=== PATIENT | female | born 1970 | race African-American/Black ===

== ENCOUNTER 2017-02-13 15:32 | Emergency (ER) | payer MEDICAID ==
[~2017-02-13 15:32] MED LIST: PROM6.256 PO; PSEU1TAB26 PO
[2017-02-13 15:35] VITALS: BP 158/75; PULSE 115; RESP 18; TEMP 102.7; O2SAT 99
[2017-02-13 15:48] VITALS: BP 141/75; PULSE 110; RESP 18; TEMP 103; O2SAT 99
[2017-02-13] MEDS ORDERED: ACETAMINOPHEN 325 MG TAB PO ONE (16:15)
[2017-02-13 16:23] VITALS: O2SAT 96
--- NOTE | 2017-02-13 16:23 | PD ---
HPI Chief Complaint: Cold / Flu Symptoms Time Seen by Provider: 16:14 Travel History International Travel<30 days: No Contact w/Intl Traveler<30days: No Traveled to known affect area: No History of Present Illness HPI 46 years old female complains of fever, headache, coughing congestion, nausea, low back pain, right foot pain. Patient states that the symptoms started a week ago. Patient states that she has facial pressure. Patient states the cough is productive intermittent. Patient denies any chest pain or shortness of breath. Patient complains of aching low back pain with radiation to right leg and the right foot. Patient denies any recent injury. Patient has history of recurrent right shoulder pain has been seen by physician for that. Patient denies any dysuria or frequency. Patient denies any vaginal discharge or bleeding. PFSH Past Medical History Medical History: Denies Significant Hx Blood Disorders: No Influenza Vaccination: No ?: Not LMP: 2 WEEKS Tubal Ligation: Yes Past Surgical History Surgical History: No Previous Surgery Social History Alcohol Use: Yes (SOCIALLY) Tobacco Use: No Substance Use: No Allergies-Medications (Allergen,Severity, Reaction): Coded Allergies: No Known Allergies (Unverified Adverse Reaction, Unknown, 02/13/17) Reported Meds & Prescriptions Reported Meds & Active Scripts Active No Active Prescriptions or Reported Medications Review of Systems General / Constitutional: Positive: Fever Eyes: No: Visual changes HENT: Positive: Headaches Cardiovascular: No: Chest Pain or Discomfort Respiratory: Positive: Cough, No: Shortness of Breath Gastrointestinal: Positive: Nausea, No: Abdominal Pain Genitourinary: No: Dysuria Musculoskeletal: Positive: Pain Skin: No Rash Neurologic: No: Weakness Psychiatric: No: Depression Endocrine: No: Polydipsia Hematologic/Lymphatic: No: Easy Bruising Physical Exam Narrative GENERAL: Well-nourished, well-developed patient. SKIN: Focused skin assessment warm/dry. HEAD: Normocephalic. EYES: No scleral icterus. No injection or drainage. TM: Clear.. Throat: Mild erythematous. NECK: Supple, trachea midline. No JVD or lymphadenopathy. No meningismus CARDIOVASCULAR: Regular rate and rhythm without murmurs, gallops, or rubs. RESPIRATORY: Breath sounds equal bilaterally. No accessory muscle use. GASTROINTESTINAL: Abdomen soft, non-tender, nondistended. MUSCULOSKELETAL: No cyanosis, or edema. Mild tenderness on palpation of dorsal aspect the right foot. Full range of motion of toes. BACK: Mild tenderness on palpation lumbar area, without obvious deformity. No CVA tenderness. Negative straight leg raising. Neurologic exam normal. Data Data Last Documented VS Vital Signs Date Time Temp Pulse Resp B/P (MAP) Pulse Ox O2 Delivery O2 Flow Rate FiO2 02/13/17 16:23 96 Room Air 02/13/17 15:48 103.0 110 18 Orders Orders Complete Blood Count With Diff (02/13/17 16:15) Basic Metabolic Panel (Bmp) (02/13/17 16:15) Influenzae A/B Antigen (02/13/17 16:15) Chest, Single Ap (02/13/17 16:15) Iv Access Insert/Monitor (02/13/17 16:15) Ecg Monitoring (02/13/17 16:15) Oximetry (02/13/17 16:15) Foot, Complete (Cct2vxk) (02/13/17 16:15) Acetaminophen (Tylenol) (02/13/17 16:15) Urinalysis - C+S If Indicated (02/13/17 16:20) Labs Laboratory Tests Test 02/13/17 16:33 White Blood Count 8.0 TH/MM3 Red Blood Count 4.21 MIL/MM3 Hemoglobin 11.8 GM/DL Hematocrit 35.5 % Mean Corpuscular Volume 84.4 FL Mean Corpuscular Hemoglobin 28.0 PG Mean Corpuscular Hemoglobin Concent 33.1 % Red Cell Distribution Width 13.2 % Platelet Count 272 TH/MM3 Mean Platelet Volume 7.8 FL Neutrophils (%) (Auto) 84.9 % Lymphocytes (%) (Auto) 5.2 % Monocytes (%) (Auto) 9.4 % Eosinophils (%) (Auto) 0.3 % Basophils (%) (Auto) 0.2 % Neutrophils # (Auto) 6.8 TH/MM3 Lymphocytes # (Auto) 0.4 TH/MM3 Monocytes # (Auto) 0.8 TH/MM3 Eosinophils # (Auto) 0.0 TH/MM3 Basophils # (Auto) 0.0 TH/MM3 CBC Comment DIFF FINAL Differential Comment MDM Medical Decision Making Medical Screen Exam Complete: Yes Emergency Medical Condition: Yes Interpretation(s) Last Impressions Chest X-Ray 02/13/17 1615 Signed Impressions: Service Date/Time: Monday, February 13, 2017 16:23 - CONCLUSION: 1. Linear atelectatic changes in the left lingula/lung base. 2. Otherwise, no acute cardiopulmonary process. Shai Franco MD 1659 PM. X-ray right foot show no acute bony injury. CBC within normal limit. Patient's positive for flu A antigen Differential Diagnosis Differential diagnosis including viral syndrome, strain, pharyngitis, bronchitis , pneumonia, fracture. Narrative Course 46 years old female with fever, sore throat, coughing congestion, nausea, back pain, right foot pain. Tylenol 650 mg by mouth given. Diagnosis Primary Impression: Influenza A Additional Impression: Right foot strain Patient Instructions: General Instructions Additional Instructions: Tylenol or ibuprofen for aching pain and fever. Dyap-mlh-mmheugd cough medication as needed. Follow-up with personal physician. Return if worse. Z- Juancarlos if persistent productive cough. Scripts Azithromycin (Zithromax Z-Juancarlos) 250 Mg Dspk 250 MG PO DIRECTED for Infection, #1 DSPK 0 Refills 500 MG (2 tabs) day 1, then 1 tab days 2-5. Prov: James Hendrix MD 02/13/17 Disposition: 01 DISCHARGE HOME Condition: Stable James Hendrix MD Feb 13, 2017 16:23
[2017-02-13 16:41] LABS: AUTOMATED NEUTROPHIL # 6.8 TH/MM3 (1.8-7.7); BASOPHIL % 0.2 % (0.0-2.0); EOSINOPHIL % 0.3 % (0.0-4.0); HEMATOCRIT 35.5 % (35.0-46.0); HEMOGLOBIN 11.8 GM/DL (11.6-15.3); LYMPH % 5.2 % (9.0-44.0); LYMPHOCYTE # 0.4 TH/MM3 (1.0-4.8); MEAN CELL VOLUME 84.4 FL (80.0-100.0); MEAN CORPUSCULAR HGB CONC 33.1 % (32.0-36.0); MEAN PLATELET VOLUME 7.8 FL (7.0-11.0); MONO % 9.4 % (0.0-8.0); MONOCYTE # 0.8 TH/MM3 (0-0.9); NEUT % 84.9 % (16.0-70.0); PLATELET COUNT 272 TH/MM3 (150-450); RED BLOOD COUNT 4.21 MIL/MM3 (4.00-5.30); RED CELL DISTRIBUTION WIDTH 13.2 % (11.6-17.2)
--- NOTE | 2017-02-13 16:48 | RADRPT ---
EXAM DATE/TIME: 02/13/2017 16:23 [facility] COMPARISON: No previous studies available for comparison. INDICATIONS : Fever, cough, congestion for 1 week. MEDICAL HISTORY : None. SURGICAL HISTORY : None. ENCOUNTER: Initial ACUITY: 1 week PAIN SCORE: 0/10 LOCATION: Bilateral chest FINDINGS: A single view of the chest demonstrates the lungs to be symmetrically aerated with linear atelectatic changes in the left lingular region. Otherwise, lungs are clear. No effusions. Heart size is normal. Osseous structures are intact. CONCLUSION: 1. Linear atelectatic changes in the left lingula/lung base. 2. Otherwise, no acute cardiopulmonary process. Shai Franco MD on February 13, 2017 at 16:43 Board Certified Radiologist. This report was verified electronically.
--- NOTE | 2017-02-13 16:57 | RADRPT ---
EXAM DATE/TIME: 02/13/2017 16:23 [facility] COMPARISON: No previous studies available for comparison. INDICATIONS : Pain in all of right foot. No known trauma. MEDICAL HISTORY : None. SURGICAL HISTORY : None. ENCOUNTER: Initial ACUITY: 1 week PAIN SCORE: 5/10 LOCATION: Right foot. FINDINGS: Three view examination of the right foot demonstrates no soft tissue swelling, dislocation, or fractu re. The tarsal bones appear intact. The interphalangeal and metatarsophalangeal joints are intact. The calcaneus is intact. Bony mineralization is normal. CONCLUSION: No acute bony abnormality. Ross Young MD on February 13, 2017 at 16:53 Board Certified Radiologist. This report was verified electronically.
[2017-02-13] MEDS ORDERED: ZITHTAB PO (17:03)
[2017-02-13 17:07] LABS: CALCIUM 9.2 MG/DL (8.5-10.1)
[2017-02-13 17:11] LABS: CREATININE 1.1 MG/DL (0.50-1.00)
[2017-02-13 17:27] VITALS: BP 144/72; PULSE 102; RESP 18; TEMP 101.9; O2SAT 99
== END 2017-02-13 17:29 | disposition home or self-care (01) ==
LOC: PHED 15:32
DX: J10.1 Influenza due to other identified influenza virus with other respiratory manifestations (principal); S96.911A Strain of unspecified muscle and tendon at ankle and foot level, right foot, initial encounter
CPT/HCPCS: 71045; 73630; 80048; 85025; 87804; 99284